=== PATIENT | female | born 1965 | race Caucasian/White ===

== ENCOUNTER 2021-05-20 06:25 | Day surgery (SDC) | payer BC ==
--- NOTE | 2021-05-18 15:07 | RAD REPORT ---
EXAM DESCRIPTION: Harsh Senior (2 Views)05/18/2021 2:56 pm CLINICAL HISTORY: Pre op/ hernia repair COMPARISON: None FINDINGS: The lungs appear clear of acute infiltrate. The heart is normal size IMPRESSION: No acute abnormalities displayed
[2021-05-18 15:10] LABS: Absolute Lymphocytes (CBC) 2.7 K/uL (0.7-4.9); Basophils % 0.6 % (0-1.3); Hematocrit 39.8 % (36.0-45.0); Lymphocytes % 29.4 % (15.3-44.8); MPV 8.1 fL (7.6-11.3); RBC Red Blood Cell Count 4.47 M/uL (3.86-4.86)
[2021-05-18 15:23] LABS: Potassium 3.9 mmol/L (3.5-5.1)
--- NOTE | 2021-05-19 07:16 | EKG ---
Test Date: 2021-05-18 Test Time: 13:28:27 [employer]: HOOD MEASUREMENT RESULTS: Intervals: Rate: 70 [place]: 144 QRSD: 88 QT: 422 QTc: 455 [place]: P: 4 [place]: 144 QRS: 81 T: 13 INTERPRETIVE STATEMENTS: Normal sinus rhythm Nonspecific T wave abnormality Abnormal ECG No previous ECG available for comparison Electronically Signed On 05-19-21 07:15:15 CDT by Sha Neri
[2021-05-20] MEDS ORDERED: CEFAZOLIN/NS 1gm 1 GM/50 ML BAG ONE (07:36)
[2021-05-20] MEDS ORDERED: Ringers Lactate 1,000 ML IV ONE (07:36)
[2021-05-20] MEDS ORDERED: BUPIVACAINE 0.5% PF 10 ML VIAL ONE (07:39)
[2021-05-20] MEDS ORDERED: FENTANYL CITR 100 MCG/2 ML ONE (07:45)
[2021-05-20] MEDS ORDERED: MIDAZOLAM HCL 2 MG/2 ML INJ ONE (07:45)
[2021-05-20] MEDS ORDERED: propofoL 200 MG/20 ML VIAL IV ONE (07:45)
[2021-05-20] MEDS ORDERED: ROCURONIUM 50 MG/5 ML VIAL IV ONE (07:46)
[2021-05-20] MEDS ORDERED: LIDOCAINE 1% MPF 5 ML VIAL ONE (07:46)
[2021-05-20] MEDS ORDERED: LIDOCAINE JELLY 2%- 5 ML TUBE ONE (07:47)
[2021-05-20] MEDS ORDERED: GLYCOPYRROLATE 0.2 MG/ML SYR ONE (08:32)
[2021-05-20] MEDS ORDERED: dexAMETHasone 10 MG/ML VIAL ONE (08:32)
[2021-05-20] MEDS ORDERED: KETOROLAC 30 MG/ML INJ ONE (08:33)
[2021-05-20] MEDS ORDERED: ONDANSETRON 4 MG/2 ML VIAL ONE (08:33)
--- NOTE | 2021-05-20 08:38 | P.BOP ---
Preoperative diagnosis: tender incisional ventral hernia Postoperative diagnosis: same Primary procedure: Laparoscopic repair of tender incisional ventral hernia Secondary procedure: Laparoscopic lysis of adhesions Pasteurizer: Latonya Cevallos) Estimated blood loss: <10cc Specimen: hernia sac Findings: incisional ventral hernia, intrabdominal adhesions Anesthesia: General Complications: None Transferred to: Recovery Room Condition: Good
[2021-05-20] MEDS ORDERED: NEOSTIGMINE 1 MG/ML -5 ML ONE (08:51)
[2021-05-20] MEDS: MEPERIDINE HCL 25 MG/ML SYR ONE ×2 (08:55→09:00)
[2021-05-20 09:19] VITALS: BP 102/53; TEMP 97
[2021-05-20] MEDS ORDERED: CODEINE 30MG/APAP 300MG TAB ONE (10:06)
[2021-05-20 10:31] VITALS: O2SAT 100
--- NOTE | 2021-06-15 11:30 | OP ---
Date of Procedure: 05/20/2021 Surgeon: Graham Monroy MD Integrated Specialist: KJ Smyth. Preoperative Diagnosis: Tender incisional ventral hernia. Postoperative Diagnosis: Tender incisional ventral hernia. Procedures: 1.Laparoscopic repair of tender incisional ventral hernia. 2.Laparoscopic lysis of adhesions. Estimated Blood Loss: Less than 10 mL. Specimen: Hernia sac. Findings: Incisional ventral hernia, intraabdominal adhesions. Anesthesia: General plus local. Indication: This is the case of a female, who comes to us with a tender lump over the previous [place] incisions from previous surgeries. This has given pain and discomfort, was getting bigger. She is not able to push back anymore. She wants that repaired. The benefits, alternatives, and risks of repair of incisional ventral hernia laparoscopically possible open were fully explained with possibl e mesh, which include, but not limited to infection, bleeding, damage to adjacent structures, anesthe arden complication, recurrence, UT, and even . She also understands this may not relieve any symp toms. She might need more than one surgical intervention. She understands the importance also of no heavy lifting and losing weight. She may or may not use mesh in that region. She was explained pre viously. Procedure In Detail: The patient was brought to the operating room, placed in supine position. Anes thesia was done without complication. Abdominal area was prepped and draped in usual sterile fashion . A time-out was called. An incision was made in the periumbilical region. The incision was keyon d down to fascia, which was opened under direct vision. Peritoneum was encountered, opened under dir ect vision. Vicryl #1 placed inside the fascia. Taniya trocar was carefully introduced. Pneumoperi toneum was obtained. I placed the camera in and immediately we noticed over the area where the patie nt had lump, there is indeed a hernia. There were also adhesions of omentum in that region pulling t he omentum and intestines anteriorly. Carefully, we were able to a place another trocar and with ano ther trocar we were able to carefully do lysis of adhesions as a ligature. Carefully after we have t he adhesions removed, then we were able to see the hernia defect. We noticed that we might be able t o approximate this without having to put a mesh in the fascial edges. It looks to be strong. We mad e a small incision over the area to help us delineate leave a better defect. Using laparoscopic appr oach under direct visualization, we proceeded to past the nonabsorbable sutures over the area to clos e the fascial defects. Once we have the stitches passed through making sure there was no bowel under neath, then we proceeded to tie the area and closed the defects. We once again laparoscopically veri fied it is tied with no air leak. We identified the area of the lysis of adhesions. No bleeding. N o enterotomies. At that moment, I proceeded to remove the trocars under direct vision. Deflated the pneumoperitoneum. Closed the fascia with #1 Vicryl. The umbilical hernia was already tied with sti tches and we proceeded then to close the subcutaneous tissue with 3-0 chromic and the skin was approx imated. Sponge count and instrument counts correct. The trocars were also removed under direct visu alization. The patient was sent to recovery in stable condition. BERONICA/LILA Voice ID: [id number] Report ID: [id number]
--- NOTE | 2021-06-15 11:30 | DS ---
Date of Discharge: 05/20/2021 Diagnoses: Tender incisional ventral hernia and intraabdominal adhesions. Procedures: Laparoscopic repair of tender incisional ventral hernia, laparoscopic lysis of adhesions . This procedure was done on May 20, 2021. Disposition: Home. Activity: As tolerated. No heavy lifting. Plan: Follow up in my office in 1 week. Call for appointment at [phone]. Keep area dry for 48 bacilio rs, then may shower. Medications: See orders. BERONICA/LILA Voice ID: [id number] Report ID: [id number]
== END 2021-05-20 10:15 | disposition home or self-care (01) ==
LOC: OR 06:25
PROVIDERS: ATTEND Surgery
PROC: 0WQF4ZZ Repair Abdominal Wall, Percutaneous Endoscopic Approach (ICD-10-PCS; principal; 2021-05-20 07:30)
DX: K43.9 Ventral hernia without obstruction or gangrene (principal); K66.0 Peritoneal adhesions (postprocedural) (postinfection); Z20.822 Contact with and (suspected) exposure to COVID-19
CPT/HCPCS: 49652; 93005; 85025; 80048; 36415; 88302; 71046; U0003; J2704; J2250; J3010; J1100; J2175; J2710; J0690; J7120; J2405